=== PATIENT | female | born 1990 | race Asian ===

== ENCOUNTER 2017-05-19 19:33 | Inpatient (IN) | payer OTHER ==
[2017-05-19 20:17] LABS: BILIRUBIN,URINE NEGATIVE (NEGATIVE); PH,URINE 6.5 PH (5.0-7.5)
[2017-05-19 20:20] LABS: HCG UR QUAL NEGATIVE; UA w/ MICROSCOPIC CHARGE YES
[2017-05-19 20:23] LABS: BASOPHILS # (AUTO) 0.2 10^3/uL (0.0-0.1); BASOPHILS % (AUTO) 0.7 %; EOSINOPHILS # (AUTO) 0.1 10^3/uL (0.0-0.7); EOSINOPHILS % (AUTO) 0.4 %; HGB - HEMOGLOBIN 11.8 g/dL (12.0-16.0); LYMPHOCYTES # (AUTO) 2.3 10^3/uL (1.5-3.5); MEAN CORPUSCULAR HEMOGLOBIN 26.9 pg (27.0-31.0); MEAN CORPUSCULAR HGB CONC 33.7 g/dL (32.0-36.0); MEAN CORPUSCULAR VOLUME 79.8 fL (81.0-99.0); MONOCYTES # (AUTO) 1.5 10^3/uL (0.0-1.0); MONOCYTES % (AUTO) 6.3 %; NEUTROPHILS # (AUTO) 19.3 10^3/uL (1.5-6.6); NEUTROPHILS % (AUTO) 82.6 %; RED BLOOD COUNT 4.39 10^6/uL (4.20-5.40); RED CELL DISTRIBUTION WIDTH 13.6 % (12.0-15.0); UNCORRECTED WHITE BLOOD COUNT 23.3 x10^3/uL; WHITE BLOOD COUNT 23.3 x10^3/uL (4.8-10.8)
[2017-05-19 20:27] LABS: UR CULTURE IF IND INDICATED; WBC,URINE >25 /HPF (0-5)
[2017-05-19 20:34] LABS: ALBUMIN/GLOBULIN RATIO 1.1 (1.0-2.2); BILIRUBIN,TOTAL 0.8 mg/dL (0.2-1.0); CALCIUM 9.2 mg/dL (8.5-10.3); CREATININE 0.5 mg/dL (0.4-1.0); POTASSIUM 3.5 mmol/L (3.5-5.0); TOTAL PROTEIN 8.8 g/dL (6.7-8.2)
[2017-05-19] MEDS ORDERED: SODIUM CHLORIDE 0.9% 1,000 ML IV ONE (21:07)
[2017-05-19] MEDS ORDERED: KETOROLAC 60 MG/2 ML VIAL IVP STA (21:07)
[2017-05-19] MEDS ORDERED: KETOROLAC 30 MG/ML VIAL ONE (21:08)
--- NOTE | 2017-05-19 21:17 | ED Physician Documentation ---
PD HPI ABD PAIN - Stated complaint Stated Complaint: FEMALE - Chief complaint Chief Complaint: Abd Pain - History obtained from History obtained from: Patient - History of Present Illness Timing - onset: Other (She had an IUD placed on April 27. She was doing okay but over last few days had increasing pain and bleeding and became febrile last night. She went to her physician today and they were unable to locate the IUD strings.) Review of Systems Ten Systems: 10 systems reviewed and negative Constitutional: reports: Fever, Chills Throat: denies: Dental pain / toothache, Sore throat Cardiac: denies: Chest pain / pressure, Palpitations Respiratory: denies: Dyspnea, Cough GI: reports: Abdominal Pain, Vomiting. denies: Nausea PD PAST MEDICAL HISTORY - Past Medical History Past Medical History: No - Present Medications Home Medications: Ambulatory Orders Medication Instructions Recorded Confirmed No Known Home Medications [No 05/20/17 05/20/17 Known Home Medications] - Allergies Allergies/Adverse Reactions: Allergies Allergy/AdvReac Type Severity Reaction Status Date / Time No Known Drug Allergies Allergy Verified 05/19/17 19:48 - Living Situation Living Situation: reports: With spouse/s.o. 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[employer]), Other (purulent material from cervix, no IUD strings seen) - Derm Derm: Normal color, Warm and dry, No rash - Extremities Extremities: No edema, No calf tenderness / cord - Neuro Neuro: Alert and oriented X 3, Normal speech - Psych Psych: Normal mood, Normal affect Results - Vitals Vitals: Vital Signs - 24 hr 05/19/17 05/19/17 05/19/17 19:48 19:51 21:48 Temperature 36.7 C 38.2 C H 37.4 C Heart Rate 115 H 108 H Respiratory 16 18 Rate Blood Pressure 116/75 120/64 O2 Saturation 100 99 05/19/17 22:56 Temperature 37.1 C Heart Rate 101 H Respiratory 18 Rate Blood Pressure 113/68 O2 Saturation 99 Oxygen O2 Source Room air - Labs Labs: Laboratory Tests 05/19/17 05/19/17 05/19/17 20:06 20:14 20:14 WBC 23.3 H RBC 4.39 Hgb 11.8 L Hct 35.0 L MCV 79.8 L MCH 26.9 L MCHC 33.7 RDW 13.6 Plt Count 331 MPV 8.0 Neut # 19.3 H Lymph # 2.3 Chambers # 1.5 H Eos # 0.1 Baso # 0.2 H Absolute Nucleated RBC 0.01 Nucleated RBCs 0.0 Sodium 135 Potassium 3.5 Chloride 102 Carbon Dioxide 23 Anion Gap 10.0 BUN 6 Creatinine 0.5 Estimated GFR (MDRD) 148 Glucose 107 H Calcium 9.2 Total Bilirubin 0.8 AST 38 ALT 23 Alkaline Phosphatase 89 Total Protein 8.8 H Albumin 4.6 Globulin 4.2 Albumin/Globulin Ratio 1.1 Lipase 20 L Urine Color YELLOW Urine Clarity CLEAR Urine pH 6.5 Ur Specific [place] <=1.005 Urine Protein NEGATIVE Urine Glucose (UA) NEGATIVE Urine Ketones NEGATIVE Urine Occult Blood LARGE H Urine Nitrite NEGATIVE Urine Bilirubin NEGATIVE Urine Urobilinogen 0.2 (NORMAL) Ur Leukocyte Esterase SMALL H Urine RBC 0-5 Urine WBC >25 H Urine WBC Clumps PRESENT Ur Squamous Epith Cells FEW Squamous Urine Bacteria Rare Ur Microscopic Review INDICATED Urine Culture Comments INDICATED Urine HCG, Qual NEGATIVE PD MEDICAL DECISION MAKING - ED course ED course: 26-year-old woman with a non-retrievable IUD and now signs of systemic infection with purulent material coming from her cervix. Spoke with Dr. Barros, the on-call refrigeration unit repairer who will admit her. Requested Mefoxin and doxycycline in the interim. Departure - Departure Disposition: 66 [facility] DC/Xfer Clinical Impression: PID (pelvic inflammatory disease) Condition: Serious Discharge Date/Time: 05/20/17 00:01
[2017-05-19] MEDS ORDERED: IOPAMIDOL-300 100 ML VIAL IVP ONE (21:48)
[2017-05-19] MEDS ORDERED: DOXYCYCLINE INJ 100 MG in SODIUM CHLORIDE 0.9% MINIBAG 100 ML IV STA (21:53)
[2017-05-19] MEDS ORDERED: cefOXitin 1 GM in SODIUM CHLORIDE 0.9% MINIBAG 100 ML IV STA (21:53)
--- NOTE | 2017-05-19 22:18 | CT Preliminary Report ---
Exam: CT Abdomen/Pelvis W/ IMPRESSION: 1. IUD centrally positioned within the uterus. No evidence of uterine rupture, fluid collection or ac ella inflammatory process within the abdomen and pelvis. 2. Simple-appearing likely physiologic left ovarian cysts. [facility] SITE ID: [id number]
[2017-05-19] MEDS ORDERED: fentaNYL 100 MCG/2 ML VIAL IVP STA (22:20)
--- NOTE | 2017-05-19 22:20 | CT Report ---
EXAM: CT ABDOMEN AND PELVIS EXAM DATE: 05/19/2017 09:49 PM. CLINICAL HISTORY: IV only, fever, IUD placement, uterine rupture?. COMPARISONS: None. TECHNIQUE: Routine helical CT imaging was performed through the abdomen and pelvis. IV contrast: 100 mL Isovue-300. Enteric contrast: No. Reconstructions: Coronal and sagittal. In accordance with CT protocol optimization, one or more of the following dose reduction techniques w ere utilized for this exam: automated exposure control, adjustment of mA and/or KV based on patient s ize, or use of iterative reconstructive technique. FINDINGS: Lung Bases: Unremarkable. Liver: Normal. No masses. Gallbladder/Bile Ducts: Unremarkable. Spleen: Normal. Pancreas: Normal. Adrenal Glands: Normal. Kidneys: Normal. No masses or hydronephrosis. Peritoneal Cavity/Bowel: Normal. No free fluid, free air or adenopathy. No masses or acute inflammato ry process. The appendix is well visualized and normal. Pelvic Organs: Left ovarian cyst measuring 2.3 x 3.6 and 2.2 x 2.5 cm. IUD noted centrally within the uterus. No fluid collections. No lymphadenopathy. Vasculature: No aneurysms or other significant abnormality. Bones: No significant abnormality. Other: None. IMPRESSION: 1. IUD centrally positioned within the uterus. No evidence of uterine rupture, fluid collection or ac [place] inflammatory process within the abdomen and pelvis. 2. Simple-appearing likely physiologic left ovarian cysts. [facility] Referring Provider Line: [phone] SITE ID: [id number]
[2017-05-19] MEDS ORDERED: fentaNYL 100 MCG/2 ML VIAL ONE (22:24)
[2017-05-19] MEDS ORDERED: ONDANSETRON 4 MG/2 ML VIAL IVP PRN (23:11)
[2017-05-19] MEDS ORDERED: oxyCODONE 5 MG TABLET PO PRN (23:11)
[2017-05-19] MEDS ORDERED: KETOROLAC 30 MG/ML VIAL IVP SCH (23:45)
[2017-05-19] MEDS ORDERED: LACTATED RINGERS 1,000 ML IV SCH (23:45)
[2017-05-20] MEDS: ACETAMINOPHEN 500 MG TABLET PO SCH ×3 (00:43→17:24)
[2017-05-20] MEDS: KETOROLAC 30 MG/ML VIAL IVP SCH ×4 (03:06→21:59)
--- NOTE | 2017-05-20 04:46 | HISTORY & PHYSICAL EXAMINATION ---
DATE OF ADMISSION: 05/19/2017 IDENTIFICATION: The patient is a 26-year-old G0, P0, female whose last menstrual period was 09 May 2017. CHIEF COMPLAINT: Pelvic pain. HISTORY OF PRESENT ILLNESS: The patient states that she had an IUD placed on the 27 of April. She d enies any difficulty with placement, but noticed some mild cramping as well as some mild discomfort. This progressed to alondra pain on the 15 of May and has become worse with time. She states it is now a 10 out of 10, but currently is a 3 out of 10 following receiving Toradol. She was seen at [facility] today, and they tried to remove her IUD. She was sent here to [facility] ED for further evaluation and tr eatment. She has had a CT which showed evidence of the IUD being in place, without evidence of any a bscess. She states at home last night she developed chills and had a temperature of 100.2. This has improved with Advil, as well as warm compresses. This was worse with walking. PAST MEDICAL HISTORY: The patient denies any hypertensive, diabetic, cardiac, or pulmonary disease. PAST SURGICAL HISTORY: None. ALLERGIES: NONE KNOWN. CURRENT MEDICATIONS: Advil 400 mg. HABITS: She denies the use of alcohol, tobacco, and street or addictive drugs. 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 She trained in the [facility]. FAMILY HISTORY: Positive for hypertension on the mother's side, as well as a father who had bladder stones. REVIEW OF SYSTEMS: The patient wears glasses for vision. She denies any palpitations of the heart a nd chest pain. She denies any nausea, vomiting, diarrhea, and constipation. She denies any chronic cough, sputum production, and shortness of breath. She denies any joint pain, muscle weakness, seizu res, loss of consciousness, and numbness, tingling, or burning in any portion of her body. PHYSICAL EXAMINATION GENERAL APPEARANCE: A well-developed, well-nourished female. VITAL SIGNS: Her pulse is 108. Temperature is 37.4. Blood pressure 120/60. Respirations are 18. She is saturating 99% on room air. HEENT: Pupils are equal, round, and reactive. Extraocular muscles are intact. HEART: Regular rate and rhythm, without murmurs. LUNGS: Doss are clear, without rales or wheezes. BACK: No spinal or CVA tenderness noted. ABDOMEN: Nondistended. There are good bowel sounds noted throughout. There is tenderness in the lo wer midline, as well as on the right-hand side. PELVIC: On cervical examination, at this point, it was decided to remove the IUD. A speculum was pl aced, and the cervix was visualized. There was a purulent discharge noted at this point. Betadine p rep was used x3. Following this, Juan forceps were introduced into the cervix. Following a secon d pass, a Mirena IUD was removed without difficulty. The uterus was noted to be anterior. Internal examination showed tenderness, particularly on the right-hand side. This tenderness was dulled in th e fact that she had 25 mcg of fentanyl prior to this procedure. LABORATORY DATA: Laboratories were noted at this time. White count is elevated. IMPRESSION: This is a 26-year-old 0, para 0, with apparent pelvic inflammatory disease with an intrauterine device in place. PLAN: The IUD was removed without difficulty. We will start the patient on doxycycline as well as M efoxin. We will admit for IV medication. JOB #: [id number] EXT JOB #:[id number]
[2017-05-20] MEDS: cefOXitin 1 GM in SODIUM CHLORIDE 0.9% MINIBAG 100 ML IV SCH ×3 (05:54→21:59)
[2017-05-20 06:08] LABS: BASOPHILS % (AUTO) 0.2 %; EOSINOPHILS # (AUTO) 0.2 10^3/uL (0.0-0.7); EOSINOPHILS % (AUTO) 1.5 %; HCT - HEMATOCRIT 29.4 % (37.0-47.0); HGB - HEMOGLOBIN 9.7 g/dL (12.0-16.0); LYMPHOCYTES # (AUTO) 2.4 10^3/uL (1.5-3.5); LYMPHOCYTES % (AUTO) 16.8 %; MEAN CORPUSCULAR HEMOGLOBIN 26.6 pg (27.0-31.0); MEAN CORPUSCULAR HGB CONC 32.9 g/dL (32.0-36.0); MEAN CORPUSCULAR VOLUME 80.8 fL (81.0-99.0); MEAN PLATELET VOLUME 8.2 fL (7.9-10.8); MONOCYTES # (AUTO) 0.9 10^3/uL (0.0-1.0); MONOCYTES % (AUTO) 6.7 %; NEUTROPHILS # (AUTO) 10.6 10^3/uL (1.5-6.6); NEUTROPHILS % (AUTO) 74.8 %; RED BLOOD COUNT 3.64 10^6/uL (4.20-5.40); RED CELL DISTRIBUTION WIDTH 13.4 % (12.0-15.0); UNCORRECTED WHITE BLOOD COUNT 14.2 x10^3/uL; WHITE BLOOD COUNT 14.2 x10^3/uL (4.8-10.8)
--- NOTE | 2017-05-20 07:49 | PROVIDER PROGRESS NOTE ---
Subjective - Prog Note Date Prog Note Date: 05/20/17 Prog Note Time: 07:47 - Subjective Pt reports feeling: Improved (Pt notes her pain 2/10. using minimal pain medication.) Objective - Vital Signs/Intake & Output Reviewed Vital Signs: Yes Vital Signs: Vital Signs x48h Temp Pulse Pulse Resp BP BP Pulse Ox 05/20/17 00:15 36.9 C 100 18 103/70 99 05/20/17 00:01 99 18 105/66 99 Intake & Output: Intake & Output 05/17/17 05/18/17 05/19/17 05/20/17 23:59 23:59 23:59 23:59 Output Total 300 Balance -300 - Objective General Appearance: positive: Alert Respiratory: positive: Chest non-tender, No respiratory distress, Breath sounds nml Cardiovascular: positive: Regular rate & rhythm, No murmur Abdomen: positive: Nml bowel sounds, No distention, Tenderness (minimal tenderness in the right lower quagrent.). negative: Guarding, Rebound Back: negative: CVA tenderness (R), CVA tenderness (L) Extremities: negative: Calf tenderness, Charline's sign/cords Neurologic/Psychiatric: positive: Oriented x3 - Lab Results Fish Bones: 05/20/17 05:20 05/19/17 20:14 Other Labs: Lab Results x24hrs 05/20/17 Range/Units 05:20 WBC 14.2 H (4.8-10.8) x10^3/uL RBC 3.64 L (4.20-5.40) 10^6/uL Hgb 9.7 L (12.0-16.0) g/dL Hct 29.4 L (37.0-47.0) % MCV 80.8 L (81.0-99.0) fL MCH 26.6 L (27.0-31.0) pg MCHC 32.9 (32.0-36.0) g/dL RDW 13.4 (12.0-15.0) % Plt Count 268 (130-450) 10^3/uL MPV 8.2 (7.9-10.8) fL Neut # 10.6 H (1.5-6.6) 10^3/uL Lymph # 2.4 (1.5-3.5) 10^3/uL Cecil # 0.9 (0.0-1.0) 10^3/uL Eos # 0.2 (0.0-0.7) 10^3/uL Baso # 0.0 (0.0-0.1) 10^3/uL Absolute Nucleated RBC 0.00 x10^3/uL Nucleated RBCs 0.0 /100WBC Assessment/Plan - Problem List (1) PID (pelvic inflammatory disease) Impression: White count in decreasing, pain improving, temp normalized. will continue antibiotics afebril 48 hours
[2017-05-20] MEDS ORDERED: DOCUSATE SODIUM 100 MG CAPSULE PO ONE (07:59)
[2017-05-20] MEDS ORDERED: SODIUM CHLORIDE FLUSH 0.9% 10 ML SYRINGE IVP ONE (07:59)
[2017-05-20] MEDS: DOCUSATE SODIUM 100 MG CAPSULE PO SCH ×2 (08:07→21:59)
[2017-05-20] MEDS: DOXYCYCLINE 100 MG TABLET PO SCH ×2 (09:36→21:59)
[2017-05-21] MEDS: ACETAMINOPHEN 500 MG TABLET PO SCH ×2 (01:13→07:41)
[2017-05-21] MEDS: KETOROLAC 30 MG/ML VIAL IVP SCH ×3 (02:55→16:02)
[2017-05-21] MEDS: cefOXitin 1 GM in SODIUM CHLORIDE 0.9% MINIBAG 100 ML IV SCH ×2 (06:18→12:37)
[2017-05-21] MEDS ORDERED: SODIUM CHLORIDE FLUSH 0.9% 10 ML SYRINGE IVP ONE (07:37)
--- NOTE | 2017-05-21 08:16 | PROVIDER PROGRESS NOTE ---
Subjective - Prog Note Date Prog Note Date: 05/21/17 Prog Note Time: 08:14 - Subjective Pt reports feeling: Improved (Pelvic pain resolved. C/O CONTEH.) Objective - Vital Signs/Intake & Output Reviewed Vital Signs: Yes Vital Signs: Vital Signs x48h Temp Pulse Resp BP Pulse Ox 05/21/17 05:30 36.4 C L 70 16 92/58 L 100 Intake & Output: Intake & Output 05/18/17 05/19/17 05/20/17 05/21/17 23:59 23:59 23:59 23:59 Intake Total 2638 100 Output Total 300 Balance 2338 100 - Objective General Appearance: positive: No acute distress, Alert Respiratory: positive: Chest non-tender, No respiratory distress, Breath sounds nml Cardiovascular: positive: Regular rate & rhythm, No murmur Abdomen: positive: Non-tender, Nml bowel sounds, Other (Pelvic exam no CMT adnexa nontender, uterus is nontender) - Lab Results Fish Bones: 05/20/17 05:20 05/19/17 20:14 Assessment/Plan - Problem List (1) PID (pelvic inflammatory disease) Impression: resolved will discharge to home with doxycycline bid for 14 days call should she become worse
[2017-05-21 08:58] VITALS: BP 101/69
[2017-05-21] MEDS: DOXYCYCLINE 100 MG TABLET PO SCH (11:17)
[2017-05-21] MEDS: DOCUSATE SODIUM 100 MG CAPSULE PO SCH (11:17)
== END 2017-05-21 15:00 | disposition home or self-care (01) | DRG 700 ==
LOC: ED 19:33 → MS 23:12
PROVIDERS: ADMIT Obstetrics & Gynecology; ATTEND Obstetrics & Gynecology
PROC: 0UPD7HZ Removal of Contraceptive Device from Uterus and Cervix, Via Natural or Artificial Opening (ICD-10-PCS; principal; 2017-05-19)
DX: T83.69XA Infection and inflammatory reaction due to other prosthetic device, implant and graft in genital tract, initial encounter (principal); N73.8 Other specified female pelvic inflammatory diseases; Y76.8 Miscellaneous obstetric and gynecological devices associated with adverse incidents, not elsewhere classified; Y84.8 Other medical procedures as the cause of abnormal reaction of the patient, or of later complication, without mention of misadventure at the time of the procedure
CPT/HCPCS: 36415; 74177; 80053; 81001; 81003; 81025; 83690; 85025; 87070; 87077; 87086; 87491; 87591; 96361; 96374; 96375; 99283; 99284